=== PATIENT | male | born 1960 | race Caucasian/White ===

== ENCOUNTER 2024-02-19 14:30 | Outpatient (CLI) | payer MEDICARE, SELFPAY ==
--- NOTE | ~2024-02-19 | CT_ITS ---
EXAMINATION: CT abdomen pelvis wo con DATE: 02/19/2024 14:56 INDICATION: Left upper quadrant abdominal pain. TECHNIQUE: Computed tomography (CT) of the abdomen and pelvis was performed without intravenous contr ast. Automated exposure control and iterative reconstruction technique were employed. The dose-length product was 314.88 mGy-cm. COMPARISON: None. FINDINGS: Partially visualized is a 3.1 x 1.7 cm mass in right lung lower lobe. There is a small righ t pleural effusion. The heart size is normal. There are coronary artery calcifications. There is a sm all pericardial effusion. The liver is normal. There are gallstones in the gallbladder, which is norm al in size. The spleen, pancreas, and normal. There is a 2.2 cm mass in right adrenal gland measuring soft tissue attenuation. There is a 4.5 cm mass in left adrenal gland measuring soft tissue attenuat ion. There are parenchymal calcifications in the kidneys. There is a 13 mm cyst in right kidney. Ther e are 4 mm and 3 mm stones in left kidney. There is calcified atherosclerosis of the aorta and many o f the other arteries. There are bilateral inguinal hernias containing fat. There is diverticulosis of the colon without evidence of diverticulitis. There are no dilated loops of bowel. The appendix is n ormal. There are no pathologically enlarged lymph nodes. There is no free intraperitoneal fluid. Ther e is a lytic lesion in left parasymphyseal pubis. IMPRESSION: 1. Persistent visualized mass in right lung lower lobe, consistent with primary bronchogenic carcinom a. Chest CT with contrast is recommended. 2. Small right pleural effusion. 3. Small pericardial effusion. 4. Bilateral adrenal masses suspicious for metastatic disease. 5. Lytic lesion in left parasymphyseal pubis, which is indeterminate for metastatic disease. Reviewed, dictated and finalized at location A. IMPRESSION: 1. Persistent visualized mass in right lung lower lobe, consistent with primary bronchogenic carcinoma. Chest CT with contrast is recommended. 2. Small right pleural effusion. 3. Small pericardial effusion. 4. Bilateral adrenal masses suspicious for metastatic disease. 5. Lytic lesion in left parasymphyseal pubis, which is indeterminate for metast atic disease.
== END 2024-02-19 14:31 | disposition home or self-care (01) ==
LOC: ANHIMG 14:39
PROVIDERS: PCP Family Medicine; Visit Provider Family Medicine
DX: R91.8 Other nonspecific abnormal finding of lung field (principal); J90 Pleural effusion, not elsewhere classified; I31.39 Other pericardial effusion (noninflammatory); E27.9 Disorder of adrenal gland, unspecified; M89.9 Disorder of bone, unspecified
CPT/HCPCS: 74176

== ENCOUNTER 2024-02-23 07:34 | Outpatient (CLI) | payer MEDICARE, SELFPAY ==
--- NOTE | ~2024-02-23 | CT_ITS ---
EXAMINATION:CT diagnostic chest w con DATE: 02/23/2024 08:08 INDICATION: Hilar lymphadenopathy. TECHNIQUE: Computed tomography (CT) of the chest was performed with 75 mL Omnipaque 350 intravenous c ontrast. Automated exposure control and iterative reconstruction technique were employed. The dose-le ngth product (DLP) was 201.63 mGy-cm. COMPARISON: CT abdomen and pelvis 02/19/2024 FINDINGS: There is a 2.0 cm spiculated nodule in right lung lower lobe. There is right hilar and medi astinal lymphadenopathy. For example, a right paratracheal node measures 3.6 x 3.0 cm. There is mild bilateral supraclavicular lymphadenopathy. There is a small right pleural effusion. There are airspac e opacities in right upper lobe and right middle lobe, consistent with postobstructive pneumonia. The re is a 4 mm nodule in left upper lobe. The heart size is normal. There are coronary artery calcifica tions. There is a small pericardial effusion. There are bilateral adrenal masses measuring 5.1 x 3.6 cm on the left. There are parenchymal calcifications in the kidneys. There are gallstones in the gall bladder. There is mild thoracic spondylosis. IMPRESSION: 1. 2.0 cm spiculated nodule in right lung lower lobe, consistent with primary bronchogenic carcinoma. 2. Right hilar, mediastinal, and supraclavicular lymphadenopathy and bilateral adrenal masses, consis tent with metastatic disease. Ultrasound-guided core needle biopsy of a supraclavicular lymph node is recommended. 3. Small right pleural effusion. 4. Postobstructive pneumonia in right upper lobe and right middle lobe. 5. Small pericardial effusion. Reviewed, dictated and finalized at location A. IMPRESSION: 1. 2.0 cm spiculated nodule in right lung lower lobe, consistent with primary b ronchogenic carcinoma. 2. Right hilar, mediastinal, and supraclavicular lymphadenopathy and bilateral adrenal masses, consistent with metastatic disease. Ultrasound-guided core need le biopsy of a supraclavicular lymph node is recommended. 3. Small right pleural effusion. 4. Postobstructive pneumonia in right upper lobe and right middle lobe. 5. Small pericardial effusion.
[2024-02-23 08:03] LABS: Estimated Glomerular Filt Rate > 60
== END 2024-02-23 07:35 | disposition home or self-care (01) ==
PROVIDERS: PCP Family Medicine; Visit Provider Family Medicine
DX: R59.0 Localized enlarged lymph nodes (principal); I31.39 Other pericardial effusion (noninflammatory); J18.9 Pneumonia, unspecified organism; J90 Pleural effusion, not elsewhere classified; R91.1 Solitary pulmonary nodule
CPT/HCPCS: 71260; Q9967

== ENCOUNTER 2024-03-18 12:05 | Outpatient (CLI) | payer MEDICARE, SELFPAY ==
--- NOTE | ~2024-03-18 | PE_ITS ---
EXAMINATION: PET skull to mid thigh DATE: 03/18/2024 14:04 INDICATION: Lung nodule. TECHNIQUE: Blood glucose level was 112 mg/dL. 10.992 mCi of 18-fluorodeoxyglucose (18-FDG) was admini stered i.v. Low dose computed tomography (CT) images were acquired from the base of the brain to the proximal thighs for attenuation correction and anatomic localization. Automated exposure control was employed. Dose-length product (DLP) was 720 mGy-cm. Positron emission tomography (PET) images were ac quired in the same distribution. COMPARISON: Chest CT 02/23/2024, CT abdomen and pelvis 02/19/2024 FINDINGS: Head/neck: There is bilateral supraclavicular lymphadenopathy with increased activity. There is a lyt ic lesion in the left C3 posterior elements with increased activity. There are foci of increased acti vity in left lateral pterygoid muscle and a left posterior neck muscle. Chest: There is a 2.2 cm nodule in right lung lower lobe with maximum SUV of 28.6. There is mild emph ysema. There is mild atelectasis bilaterally. There is a 2.2 cm nodule in right upper lobe with incre ased activity. There are airspace opacities and interstitial opacities in right upper lobe and right middle lobe, consistent with mild pulmonary edema versus pneumonia. A calcified right lung nodule and calcified left hilar lymph nodes are consistent with old granulomatous disease. There is a small rig ht pleural effusion. The heart size is normal. There are coronary artery calcifications. There is a s mall pericardial effusion. There is right hilar and mediastinal lymphadenopathy with increased activi ty. There is a lytic lesion in right fifth rib with increased activity. There is a lytic lesion in T1 0 vertebral body with increased activity. There is focal increased activity in the left posterior tho racic musculature. There is activity in a normal-sized right axillary lymph node. Abdomen/pelvis/proximal thighs: The liver, gallbladder, spleen, and pancreas and normal. There are ma sses in the adrenal glands with increased activity measuring up to 5.7 x 4.6 cm on the left. There ar e parenchymal calcifications in the kidneys. There is a 13 mm cyst in right kidney. There is calcifie d atherosclerosis of the aorta and many of the other arteries. The prostate is mildly enlarged. There is a right inguinal hernia containing fat. There is diverticulosis of the colon without evidence of diverticulitis. There is right lower quadrant mesenteric lymphadenopathy with increased activity. The appendix is normal. There is wall thickening of the distal ileum with increased activity. There are foci of increased activity in the gluteal muscles bilaterally. There are foci of increased activity i n right ischium, the sacrum, left ilium, left femur, and some of the lumbar segments. Some of these l esions are associated with lytic lesions of bone by CT. IMPRESSION: 1. Lung nodules, neck and chest lymphadenopathy, adrenal masses, bone lesions, and scattered focal mu scle lesions, consistent metastatic disease. Ultrasound-guided core needle biopsy of a supraclavicula r lymph node is recommended. 2. Focal wall thickening of distal ileum, which may be primary or metastatic malignancy or inflammati on/infection. 3. Right ileocolic lymphadenopathy with increased activity, which may be reactive or metastatic disea se. Reviewed, dictated and finalized at location E. IMPRESSION: 1. Lung nodules, neck and chest lymphadenopathy, adrenal masses, bone lesions, and scattered focal muscle lesions, consistent metastatic disease. Ultrasound-g uided core needle biopsy of a supraclavicular lymph node is recommended. 2. Focal wall thickening of distal ileum, which may be primary or metastatic ma lignancy or inflammation/infection. 3. Right ileocolic lymphadenopathy with increased activi
[2024-03-18 12:28] LABS: Glucose Point of Care 112 mg/dl (65-105)
== END 2024-03-18 12:06 | disposition home or self-care (01) ==
LOC: ANHIMG 12:07
PROVIDERS: PCP Family Medicine
DX: R91.1 Solitary pulmonary nodule (principal); R91.8 Other nonspecific abnormal finding of lung field
CPT/HCPCS: 78815; A9552

== ENCOUNTER 2024-03-29 09:35 | Outpatient (CLI) | payer MEDICARE, SELFPAY ==
--- NOTE | ~2024-03-29 | MR_ITS ---
EXAMINATION: MR brain/brain stem wo/w con DATE: 03/29/2024 10:24 INDICATION: Lung cancer. TECHNIQUE: Magnetic resonance imaging (MRI) of the brain and brainstem was performed without and with 13 mL MultiHance intravenous contrast. COMPARISON: None. FINDINGS: There is an empty sella. There is a 6 mm rim-enhancing mass with old blood products in righ t parietal lobe with surrounding vasogenic edema. There are scattered areas of nonspecific increased T2-weighted signal intensity in the cerebral white matter. There is no acute ischemic infarct. The ve ntricles are normal in size. There are likely changes of ocular lens replacement surgeries. The paran tremaine sinuses are clear. The mastoid air cells are normal. IMPRESSION: 1. 6-mm rim-enhancing mass in right parietal lobe, consistent with metastatic disease. 2. Mild nonspecific cerebral white matter disease, which likely represents chronic small vessel ische mary disease. Reviewed, dictated and finalized at location A. IMPRESSION: 1. 6-mm rim-enhancing mass in right parietal lobe, consistent with metastatic d isease. 2. Mild nonspecific cerebral white matter disease, which likely represents bow stapler janett small vessel ischemic disease.
== END 2024-03-29 09:36 | disposition home or self-care (01) ==
LOC: ANHIMG 09:36
PROVIDERS: PCP Family Medicine
DX: C34.90 Malignant neoplasm of unspecified part of unspecified bronchus or lung (principal); R90.82 White matter disease, unspecified
CPT/HCPCS: 70553; A9577

== ENCOUNTER 2024-05-01 08:45 | Emergency (ER) | payer MEDICARE, SELFPAY ==
[2024-05-01] VITALS (15 sets, daily range): BP systolic 121–148; BP diastolic 76–95; PULSE 87–96; RESP 18–31; TEMP 36.3–36.6; O2SAT 96–100
--- NOTE | ~2024-05-01 | CT_ITS ---
EXAMINATION: CTA chest PE protocol DATE: 05/01/2024 09:41 INDICATION: Dyspnea. TECHNIQUE: Computed tomography angiography (CTA) of the chest was performed with 100 mL Omnipaque-350 intravenous contrast timed to evaluate the pulmonary arteries. Coronal maximum intensity projection 3D-reconstructions were created by the technologist. Automated exposure control and iterative reconst ruction technique were employed. The dose-length product was 385.25 mGy-cm. COMPARISON: Chest CT 02/23/2024 FINDINGS: There are moderate-sized right and trace left pleural effusions. There is mild emphysema. T here is a 2.4 cm nodule in right lower lobe. There is bulky right hilar and mediastinal lymphadenopat hy. There are airspace opacities in right upper lobe. There are airspace opacities throughout right m iddle lobe with volume loss. There is mild atelectasis bilaterally. There is right supraclavicular ly mphadenopathy. The heart size is normal. There are coronary artery calcifications. There is a small p ericardial effusion. There is mass effect on right pulmonary artery. There is no pulmonary embolus. C alcified left hilar lymph nodes are consistent with old granulomatous disease. There is a right inter nal jugular port with tip at superior cavoatrial junction. There are masses in the adrenal glands jamila suring up to 7.3 x 5.6 cm on the left. There is upper abdominal lymphadenopathy. There is mild thorac ic spondylosis. IMPRESSION: 1. No pulmonary embolus. 2. Worsened 2.4 cm nodule in right lung lower lobe, consistent with primary bronchogenic carcinoma. 3. Worsened right hilar, mediastinal, right supraclavicular, and upper abdominal lymphadenopathy and bilateral adrenal masses, consistent with metastatic disease. 4. Worsened postobstructive pneumonia in right upper lobe and right middle lobe. 5. Worsened moderate-sized right pleural effusion. 6. Worsened small pericardial effusion. Reviewed, dictated and finalized at location A. IMPRESSION: 1. No pulmonary embolus. 2. Worsened 2.4 cm nodule in right lung lower lobe, consistent with primary bro nchogenic carcinoma. 3. Worsened right hilar, mediastinal, right supraclavicular, and upper abdomina l lymphadenopathy and bilateral adrenal masses, consistent with metastatic dise ase. 4. Worsened postobstructive pneumonia in right upper lobe and right middle lobe . 5. Worsened moderate-sized right pleural effusion. 6. Worsened small pericardial effusion.
--- NOTE | ~2024-05-01 | XR_ITS ---
EXAMINATION: XR chest 1V portable DATE: 05/01/2024 09:01 INDICATION: Shortness of breath. TECHNIQUE: A single frontal view of the chest was obtained. COMPARISON: Chest CT 02/23/2024 FINDINGS: There is volume loss of right hemithorax. There is a right perihilar mass. There are lucenc ies and interstitial opacities in the lungs, consistent with emphysema. There is a small right pleura l effusion. No pneumothorax. The heart size is normal. There is a right internal jugular port with ti p at superior cavoatrial junction. IMPRESSION: 1. Right perihilar mass, consistent with malignancy. 2. Small right pleural effusion. 3. Emphysema. Reviewed, dictated and finalized at location A.
--- NOTE | 2024-05-01 08:49 | ECG_ITS ---
Test Date: 2024-05-01 08:48:15 Measurements Intervals [place] Rate: 88 P: 81 HI: 159 QRS: -73 QRSD: 126 T: 80 QT: 354 QTc: 430 Interpretive Statements SINUS RHYTHM WITH FREQUENT VENTRICULAR PREMATURE COMPLEXES POSSIBLE LEFT ATRIAL ENLARGEMENT LEFT BUNDLE BRANCH BLOCK BASELINE ARTIFACT- I, II, III, AVR, AVL, AVF, V1-V2 ABNORMAL ECG No previous ECG available for comparison Electronically Signed On 05-01-2024 10:38:25 CDT by Spenser Tracey D.O.
--- NOTE | 2024-05-01 08:59 | ED.SOB ---
HPI - SOB/Dyspnea General Chief Complaint: Shortness of Breath/Dyspnea Stated Complaint: SOB History of Present Illness HPI Narrative: This is a 64-year-old male with a history of HIV, recently diagnosed metastatic lung cancer status post radiation therapy to lesions in his brain and recently started chemotherapy at the end of March. Patient states for last 5 days he has been having progressively worsening shortness of breath to the point that he is only having 2-3 word dyspnea. Endorses a pleuritic chest pain but denies any nauseousness, vomiting, headache, vision changes, neuropathy, weakness, abdominal pain, back pain. No history of blood clots, coronary artery disease, DVT/PE, COPD or asthma. Difficulty breathing got severe today and he called EMS for assistance who noted that he was severely tachypneic and having deep respirations with clear lung sounds. Related Data Allergies Allergy/AdvReac Type Severity Reaction Status Date / Time No Known Allergies Allergy Verified 05/01/24 09:00 Review of Systems Review of Systems: As reviewed above in HPI Exam Narrative: GENERAL: Ill-appearing, and acute respiratory distress HEAD: [Normocephalic, atraumatic.] EYES: [PERRLA and EOMI.] ENT: Nares clear, no rhinorrhea or epistaxis. Mucous membranes moist. NECK: Supple. CHEST: Clear to auscultation bilaterally without any wheezing, rhonchi or rales but moderate to severe respiratory distress with conversational dyspnea 1-2 words. Accessory muscle use, deep respirations. HEART: [Regular rate and rhythm]. No murmur heard. [Normal peripheral pulses.] ABDOMEN: [Soft, nondistended], [nontender], [No rigidity or guarding] EXTREMITIES: Normal range of motion. [No edema.] SKIN: Warm, dry, no rash. NEURO: [No focal deficits]. Alert and oriented [x3.] PSYCH: [Normal mood and affect.] Course Vital Signs Vital signs: Vital Signs Pulse Oximetry 96 05/01/24 08:47 Oxygen Delivery Nasal Cannula 05/01/24 08:47 Oxygen Flow Rate 2 05/01/24 08:47 Temperature 36.6 C 05/01/24 12:09 Pulse Rate 96 05/01/24 14:31 Respiratory Rate 18 05/01/24 14:31 Blood Pressure 138/87 05/01/24 13:52 Pulse Oximetry 96 05/01/24 14:31 Oxygen Delivery BiPAP 05/01/24 14:31 Oxygen Flow Rate 2 05/01/24 08:52 MDM - SOB/Dyspnea MDM Narrative Medical decision making narrative: This is a 64-year-old male presenting for difficulty in breathing. Patient is in moderate to severe respiratory distress with very labored breathing, 2 word dyspnea, not hypoxic on room air and saturating well. Breathing in the 30s. Deep respirations. He has a history of active cancer currently undergoing chemotherapy and recent radiation therapy to brain lesions in February. Endorses inspiratory pleuritic pain. No nauseous, vomiting, fever or tachycardia. Productive cough noted recently. Symptoms worsening over last 5 days. He has clear lung sounds which raises suspicion for a thromboembolic process given his active cancer and level of respiratory distress. Initially was placed on nasal cannula which is alleviated his sensation of air hunger however he was still in respiratory distress so we transition to BiPAP therapy for assistance given that he is at high risk for decompensation and tiring out from his level breathing over such a long duration. A CTA of the chest was ordered to delineate if there is a pulmonary embolism or worsening lung cancer burden. Cardiac workup was ordered including troponin, electrolytes, CBC. EKG was obtained and showed frequent ectopy but no acute ST segment elevations or MA. Workup revealed no leukocytosis or anemia. Electrolyte panel within normal limits, normal renal function. Troponin mildly elevated 0.023 but still within normal limits. BNP elevated 376. Normal hepatic function panel. Chest x-ray shows right hilar mass consistent with malignancy a small right pleural effusion. A CT PE protocol was ordered which
[2024-05-01] MEDS: LACTATED RINGERS 1,000 ML 999 ML IV CONT (09:05)
[2024-05-01 09:12] LABS: Basophils Percent Auto 0.3 % (0.2-1.2); Eosinophils Percent Auto 0.1 % (0-4.4); Hematocrit 37.8 % (42.0-52.0); Hemoglobin 12.2 g/dL (14.0-18.0); Immature Granulocyte Absolute 0.02 K/mm3 (0.00-0.031); Immature Granulocyte Percent A 0.3 % (0-0.5); Lymphocytes Absolute Auto 0.88 K/mm3 (0.9-3.2); Lymphocytes Percent Auto 12.9 % (18.3-44.2); Mean Corpuscular HGB Conc 32.3 g/dl (32-36); Mean Corpuscular Hemoglobin 30.7 pg (26-34); Mean Platelet Volume 9.4 fl (7.4-10.4); Monocytes Absolute Auto 0.8 K/mm3 (0.1-0.6); Monocytes Percent Auto 12.3 % (2.6-8.5); Neutrophils Absolute Auto 5.1 K/mm3 (1.3-6.7); Neutrophils Percent Auto 74.1 % (45.5-73.1); Platelet Count Result 142 k/mm3 (150-375); Red Blood Count 3.98 M/mm3 (4.6-6.20); Red Cell Distribution Width 16.8 % (11.5-14.5); White Blood Count 6.8 K/mm3 (4.5-10.0)
[2024-05-01 09:20] LABS: Alanine Aminotransferase 12 U/L (6-50); Albumin Level 2.8 g/dL (3.5-5.1); Alkaline Phosphatase 80 U/L (38-126); Anion Gap 7 mmol/L (4-12); Aspartate Amino Transferase 23 U/L (17-59); Bilirubin,Total 0.4 mg/dL (0.2-1.3); Blood Urea Nitrogen 14 mg/dL (9-20); Calcium 8.4 mg/dL (8.4-10.2); Carbon Dioxide 27 mmol/L (22-30); Chloride 99 mmol/L (98-107); Estimated CRCL calculation 94 ml/min; Estimated Glomerular Filt Rate > 60; Glucose 109 mg/dL (65-110); Potassium 3.9 mmol/L (3.4-5.0); Sodium 133 mmol/L (137-145)
[2024-05-01 09:23] LABS: INR 1.2; Prothrombin Time 15.5 Seconds (11.1-14.7)
[2024-05-01 09:24] LABS: Partial Thromboplastin Time 32.7 Seconds (22.3-36.8)
[2024-05-01 09:31] LABS: NT Pro B Type Natriuretic Pept 376 pg/mL (19.9-100); Troponin I 0.023 ng/mL (0.000-0.034)
[2024-05-01 09:48] LABS: Influenza A QL RT-PCR Negative (Negative); Influenza B QL RT-PCR Negative (Negative); RSV RNA, RT-PCR Negative (Negative); SARS-CoV-2 RNA PCR Negative (Negative)
[2024-05-01] MEDS: cefTRIAXone 2 GM/NS 100 ML 2 GM/100 ML BAG IVPB (11:08)
--- NOTE | 2024-05-01 11:27 | PC.NURSE ---
[facility] was called per Dr. Richardson. Pt is accepted in the icu. Currently waiting on bed placement. Pt will be going by ALS ground, pt will be going with a bipap.
--- NOTE | 2024-05-01 11:46 | PC.NURSE ---
ACCEPTED TO [facility]
[2024-05-01] MEDS: AZITHROMYCIN 500 MG/NS 250 ML 500 MG/250 ML BAG 250 MG IVPB (13:53)
== END 2024-05-01 16:20 | disposition short-term general hospital (02) ==
PROVIDERS: Emergency Provider Student in an Organized Health Care Education/Training Program; PCP Family Medicine
DX: J18.9 Pneumonia, unspecified organism (principal); C78.00 Secondary malignant neoplasm of unspecified lung; Z20.822 Contact with and (suspected) exposure to COVID-19
CPT/HCPCS: 36415; 71045; 71275; 80053; 83880; 84484; 85025; 85610; 85730; 87637; 93005; 96361; 96365; 96367; 99285; J0456; J0696; J7120; Q9967